=== PATIENT | male | born 1990 | race Caucasian/White ===

== ENCOUNTER 2022-10-27 16:52 | Emergency (ER) | payer SELFPAY ==
[~2022-10-27] VITALS: Ht 172.7 cm; Wt 68.0 kg
[2022-10-27] MEDS ORDERED: HALOPERIDOL IM 5 MG/ML VIAL IM ONE (17:00)
--- NOTE | 2022-10-27 17:02 | NUR ---
1702 BIBA ALS TO ER BED 5
[2022-10-27] MEDS ORDERED: diphenhydrAMINE 50 MG/ML VIAL IVP ONE (17:05)
[2022-10-27 17:12] VITALS: BP 123/75; PULSE 106; RESP 16; TEMP 98.8; O2SAT 96
[2022-10-27 17:24] LABS: BASOPHILS % (AUTO) 0.7 % (0.0-2.0); EOSINOPHILS # (AUTO) 0.1 K/uL (0-0.4); EOSINOPHILS % (AUTO) 1.4 % (0.0-4.0); HEMOGLOBIN 13.6 g/dL (12.0-18.0); LYMPHOCYTES # (AUTO) 2.2 K/uL (2.0-11.5); LYMPHOCYTES % (AUTO) 32.8 % (20.5-51.1); MEAN CORPUSCULAR HEMOGLOBIN 29 pg (27-31); MEAN CORPUSCULAR HGB CONC 33 g/dL (33-37); MEAN CORPUSCULAR VOLUME 87.5 fL (80-94); MONOCYTES # (AUTO) 0.7 K/uL (0.8-1.0); MONOCYTES % (AUTO) 10.2 % (1.7-9.3); NEUTROPHILS # (AUTO) 3.7 K/uL (1.8-7.7); NEUTROPHILS % (AUTO) 54.9 % (42.2-75.2); PLATELET COUNT (AUTO) 421 K/uL (140-450); RED BLOOD CELL COUNT(AUTO) 4.69 MIL/uL (4.20-6.10); RED CELL DISTRIBUTION WIDTH 14.4 % (11.6-13.7); WHITE BLOOD COUNT (AUTO) 6.7 K/uL (4.8-10.8)
[2022-10-27] MEDS ORDERED: NACL 0.9% 1,000 ML IV ONE (17:30)
[2022-10-27 17:41] LABS: ALBUMIN 3.6 g/dL (3.4-5.0); ANION GAP 17.1 (8-16); ASPARTATE AMINOTRANSFERASE 48 U/L (15-37); CARBON DIOXIDE 26.3 mmol/L (21-32); CHLORIDE 104 mmol/L (98-107); CREATININE 0.7 mg/dL (0.6-1.3); GFR ARICAN-AMERICAN 170 mL/min (>90); GLUCOSE 87 mg/dL (74-106); POTASSIUM 3.4 mmol/L (3.5-5.1); SODIUM SERUM 144 mmol/L (136-145); TOTAL BILIRUBIN 0.3 mg/dL (0.0-1.0); UREA NITROGEN, BLOOD 8 mg/dL (7-18)
--- NOTE | 2022-10-27 17:47 | NUR ---
Patient taken to CT via gurney.
--- NOTE | 2022-10-27 17:55 | NUR ---
Patient returned from CT.
--- NOTE | 2022-10-27 18:02 | NUR ---
Per accredited pharmacy technician, patient refused CT. Dr. Mckinney made aware.
--- NOTE | 2022-10-27 18:13 | NUR ---
Attempted to do EKG. Patient refused. Will try again later.
--- NOTE | 2022-10-27 18:20 | NUR ---
Per Tierney Del Rosario VENEER SORTER, NaCl 0.9 1L bolus started at 1720 and ended 1820. ED director aware.
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
--- NOTE | 2022-10-27 19:10 | NUR ---
RECEIVED REPORT FROM NORMA LAWS. PT LYING IN BED SLEEPING. CONTINUING CARE OF PATIENT.
--- NOTE | 2022-10-27 19:21 | NUR ---
Report given to NORMA Malave and JANIYA Warner for transfer of care.
[2022-10-27 19:24] VITALS: O2SAT 96
--- NOTE | 2022-10-27 20:12 | NUR ---
PT TO CT
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
[2022-10-27 20:18] LABS: BARBITURATE, URINE NEGATIVE ng/ml (NEG <=200); BENZODIAZEPINE, URINE NEGATIVE ng/mL (NEG <=200); CANNABINOID, URINE POSITIVE ng/mL (NEG <=50); COCAINE, URINE NEGATIVE ng/mL (NEG <=300); OPIATE, URINE NEGATIVE ng/mL (NEG <=2000); PHENCYCLIDINE SCREEN,URINE NEGATIVE ng/mL (NEG <=25)
[2022-10-27 22:28] VITALS: O2SAT 96
--- NOTE | 2022-10-27 22:29 | NUR ---
PT ASLEEP IN BED WITH NO S/S PAIN OR DISTRESS. PT WITHIN VIEW OF NURSES STATION.
--- NOTE | 2022-10-28 00:15 | NUR ---
PT LYING IN BED ASLEEP WITH NO S/S PAIN OR DISTRESS. PT IN VIEW OF NURSES STATION.
[2022-10-28 00:30] VITALS: O2SAT 96
--- NOTE | 2022-10-28 02:21 | NUR ---
FOOD PROVIDED TO PT . PT IS RESTING IN BED . NO VERBAL OUTLETS . RESP EVEN AND UNLABORED.
[2022-10-28 03:21] VITALS: O2SAT 96
--- NOTE | 2022-10-28 04:35 | NUR ---
PT ASLEEP WITH NO S/S PAIN OR DISTRESS. RESPERATIONS EVEN AND UNLABORED. PT IN VIEW OF NURSES STATION.
--- NOTE | 2022-10-28 05:59 | NUR ---
Patient discharged with v/s stable. Written and verbal after care instructions given and explained. Patient verbalized understanding. Ambulatory with steady gait. All questions addressed prior to discharge. Advised to follow up with PMD.
== END 2022-10-28 05:59 | disposition home or self-care (01) ==
LOC: MED 16:52
DX: R41.82 Altered mental status, unspecified (principal); E87.6 Hypokalemia; R97.1 Elevated cancer antigen 125 [CA 125]; E86.0 Dehydration; R45.1 Restlessness and agitation
CPT/HCPCS: 36415; 80053; 80305; 82550; 82553; 85025; 96361; 96372; 96374; 99285; J1200; J1630; J7030

== ENCOUNTER 2022-12-26 12:18 | Emergency (ER) | payer SELFPAY ==
[~2022-12-26] VITALS: Ht 165.1 cm; Wt 63.5 kg
[2022-12-26 12:23] VITALS: BP 127/82; PULSE 99; RESP 16; TEMP 97.8; O2SAT 99
== END 2022-12-26 14:11 | disposition left against medical advice (07) ==
LOC: MED 12:18
DX: M79.661 Pain in right lower leg (principal); M79.662 Pain in left lower leg; Z53.21 Procedure and treatment not carried out due to patient leaving prior to being seen by health care provider
CPT/HCPCS: 99281

== ENCOUNTER 2023-04-29 21:32 | Emergency (ER) | payer OTHER ==
[~2023-04-29] VITALS: Ht 167.6 cm; Wt 72.6 kg
[2023-04-29 21:32] VITALS: BP 157/90; PULSE 122; RESP 19; TEMP 97.9; O2SAT 96
[2023-04-29 21:57] VITALS: BP 133/81; O2SAT 99
[2023-04-29] MEDS ORDERED: NACL 0.9% 1,000 ML IV ONE (23:15)
[2023-04-29 23:25] VITALS: PULSE 114; RESP 23
== END 2023-04-30 00:29 | disposition home or self-care (01) ==
LOC: MED 21:32 → EDBD 21:32 → MED 04-30 00:29
DX: Z02.89 Encounter for other administrative examinations (principal); F10.129 Alcohol abuse with intoxication, unspecified; F17.210 Nicotine dependence, cigarettes, uncomplicated; Y90.0 Blood alcohol level of less than 20 mg/100 ml
CPT/HCPCS: 36415; 96360; 99283; G0482; J7030

== ENCOUNTER 2023-11-13 22:56 | Inpatient (IN) | payer OTHER ==
[~2023-11-13] VITALS: Ht 162.6 cm; Wt 68.0 kg
[~2023-11-13 22:56] MED LIST: ROC1PM IV; VANC1.2529 IV
[2023-11-13 23:03] VITALS: BP 110/65; PULSE 119; RESP 16; TEMP 99.2; O2SAT 96
[2023-11-14] MEDS ORDERED: VANCOMYCIN 1GM/DEXT 5% PREMIX 200 ML IV ONE (01:10)
[2023-11-14] MEDS ORDERED: VANCOMYCIN PER PHARMACY MC PRN ×2 (01:10→05:30)
[2023-11-14 01:18] LABS: BASOPHILS # (AUTO) 0.1 K/uL (0.00-0.22); BASOPHILS % (AUTO) 0.7 % (0.0-2.0); EOSINOPHILS # (AUTO) 0.1 K/uL (0-0.4); EOSINOPHILS % (AUTO) 1.5 % (0.0-4.0); HEMATOCRIT 35.5 % (36-52); HEMOGLOBIN 12.1 g/dL (12.0-18.0); LYMPHOCYTES # (AUTO) 1.9 K/uL (2.0-11.5); LYMPHOCYTES % (AUTO) 22.3 % (20.5-51.1); MEAN CORPUSCULAR HEMOGLOBIN 30 pg (27-31); MEAN CORPUSCULAR HGB CONC 34 g/dL (33-37); MEAN CORPUSCULAR VOLUME 88.8 fL (80-94); MONOCYTES % (AUTO) 11.6 % (1.7-9.3); NEUTROPHILS # (AUTO) 5.4 K/uL (1.8-7.7); NEUTROPHILS % (AUTO) 63.9 % (42.2-75.2); PLATELET COUNT (AUTO) 331 K/uL (140-450); RED CELL DISTRIBUTION WIDTH 13.8 % (11.6-13.7); WHITE BLOOD COUNT (AUTO) 8.5 K/uL (4.8-10.8)
[2023-11-14 01:29] LABS: ANION GAP 14.2 (8-16); CALCIUM 8.5 mg/dL (8.5-10.1); CARBON DIOXIDE 26.1 mmol/L (21-32); CREATININE 0.8 mg/dL (0.6-1.3); POTASSIUM 3.3 mmol/L (3.5-5.1)
[2023-11-14 01:35] LABS: ALBUMIN 3.4 g/dL (3.4-5.0); TOTAL BILIRUBIN 0.3 mg/dL (0.0-1.0); TOTAL PROTEIN, SERUM 7.7 g/dL (6.4-8.2)
[2023-11-14] MEDS ORDERED: cefTRIAXone 1,000 MG VIAL ONE (02:01)
[2023-11-14] MEDS ORDERED: VANCOMYCIN 1,000 MG VIAL ONE (03:43)
[2023-11-14] MEDS: VANCOMYCIN 1,000 MG in DEXTROSE 5% 250 ML IV ONE (03:48)
[2023-11-14] MEDS ORDERED: HYDROcodone/APAP 5/325 MG 1 TAB TAB PO PRN (05:30)
[2023-11-14] MEDS ORDERED: ONDANSETRON 4 MG/2 ML VIAL IVP PRN (05:30)
[2023-11-14] MEDS ORDERED: LORazepam 1 MG TAB PO PRN (05:30)
[2023-11-14] MEDS ORDERED: MORPHINE SULFATE 4 MG/ML SYR IVP PRN (05:30)
[2023-11-14] MEDS ORDERED: MAGNESIUM OXIDE 400 MG TAB PO PRN (05:30)
[2023-11-14] MEDS ORDERED: ACETAMINOPHEN 325 MG TAB PO PRN (05:30)
[2023-11-14] MEDS: NACL 0.9% 1,000 ML IV SCH (05:44)
[2023-11-14] MEDS: DOCUSATE SODIUM 100 MG GELCAP PO SCH (09:00)
[2023-11-14] MEDS: POTASSIUM CHLORIDE 10 MEQ TABER PO PRN (10:39)
[2023-11-14] MEDS: ENOXAPARIN 40 MG/0.4 ML SYR SUBQ SCH (10:43)
[2023-11-14 11:35] VITALS: PULSE 81; RESP 20; O2SAT 96
[2023-11-14] MEDS: VANCOMYCIN 1,000 MG in DEXTROSE 5% 250 ML IV SCH (12:17)
[2023-11-14 16:00] VITALS: BP 118/78; PULSE 75; RESP 18; TEMP 98.2; O2SAT 96
[2023-11-14 20:00] VITALS: BP 127/79; PULSE 101; RESP 18; TEMP 98; O2SAT 96
[2023-11-14] MEDS: MEDS-TO-BEDS MC SCH (20:14)
[2023-11-15 04:00] VITALS: BP 131/79; PULSE 79; RESP 18; TEMP 97; O2SAT 96
[2023-11-15 07:29] LABS: ANION GAP 11.7 (8-16); CALCIUM 8.2 mg/dL (8.5-10.1); CARBON DIOXIDE 26.2 mmol/L (21-32); CREATININE 0.6 mg/dL (0.6-1.3); POTASSIUM 3.9 mmol/L (3.5-5.1)
[2023-11-15 08:00] VITALS: BP 112/79; PULSE 101; PULSE 90; RESP 18; TEMP 98.2; O2SAT 96; O2SAT 98
[2023-11-15] MEDS: VANCOMYCIN 1,000 MG in DEXTROSE 5% 250 ML IV SCH (13:47)
[2023-11-15 17:30] VITALS: BP 99/65; PULSE 88; RESP 18; TEMP 98.2
== END 2023-11-15 18:29 | disposition home or self-care (01) | DRG 206 ==
LOC: MED 22:56 → MMU 11-14 05:30 → MTU 11-14 06:52
PROVIDERS: ADMIT Hospitalist; ATTEND Hospitalist
PROC: 02HV33Z Insertion of Infusion Device into Superior Vena Cava, Percutaneous Approach (ICD-10-PCS; principal; 2023-11-14)
PROC: B548ZZA Ultrasonography of Superior Vena Cava, Guidance (ICD-10-PCS; 2023-11-14)
DX: T82.524A Displacement of infusion catheter, initial encounter (principal); E44.1 Mild protein-calorie malnutrition; E11.69 Type 2 diabetes mellitus with other specified complication; Z89.611 Acquired absence of right leg above knee; M86.8X7 Other osteomyelitis, ankle and foot; I10 Essential (primary) hypertension; Y83.8 Other surgical procedures as the cause of abnormal reaction of the patient, or of later complication, without mention of misadventure at the time of the procedure; Y92.89 Other specified places as the place of occurrence of the external cause; Z68.25 Body mass index [BMI] 25.0-25.9, adult
CPT/HCPCS: 36415; 71045; 80048; 80053; 80202; 83735; 85025; 85651; 86140; 87081; 93922; 93925; 96365; 96366; 96367; 97116; 97163-GP; 99285; G0482; J0696; J1650; J3370; J7060; Q0092

== ENCOUNTER 2023-11-17 13:23 | Emergency (ER) | payer OTHER ==
[~2023-11-17] VITALS: Ht 165.1 cm; Wt 68.0 kg
[2023-11-17 14:01] VITALS: BP 117/75; PULSE 89; RESP 15; TEMP 98.2; O2SAT 98
[2023-11-17 15:44] VITALS: BP 117/75; PULSE 89; RESP 15; TEMP 98.2; O2SAT 98
== END 2023-11-17 15:40 | disposition home or self-care (01) ==
LOC: MED 13:23
DX: Z45.2 Encounter for adjustment and management of vascular access device (principal); Z79.2 Long term (current) use of antibiotics; Z98.890 Other specified postprocedural states
CPT/HCPCS: 36569; 71045; 99285; Q0092